=== PATIENT | female | born 1955 | race Caucasian/White ===

== ENCOUNTER 2018-06-06 16:17 | Emergency (ER) | payer OTHER ==
[~2018-06-06] VITALS: Ht 165.1 cm; Wt 68.0 kg
[2018-06-06] VITALS (7 sets, daily range): BP systolic 100–127; BP diastolic 59–77
--- NOTE | 2018-06-06 17:09 | Emergency Room Report ---
History of Present Illness General Chief Complaint: Lower Extremity Injury Source: EMS Present Illness HPI Patient is a 62-year-old female who presents for increased bilateral lower extremity pain. Patient was noted to have prior history of fall. The patient been found with increased temperature. Patient had prior history of hip surgery on her left hip. The patient reports having increased bilateral hip pain. She states she fall several days ago Allergies: Coded Allergies: No Known Allergies (Unverified , 06/06/18) Patient History Past Medical History: see triage record Last Menstrual Period: NA Reviewed Nursing Documentation: PMH: Agreed; PSxH: Agreed Nursing Documentation-PMH Past Medical History: No History, Except For History Of Psychiatric Problem: Yes Hx Neurological Problems: Yes - substance abuse Review of Systems All Other Systems: limited - poor historian Physical Exam Vital Signs Date Time Temp Pulse Resp B/P (MAP) Pulse Ox O2 Delivery O2 Flow Rate FiO2 06/06/18 16:11 101.5 105 18 127/77 97 Room Air 101.5 Sp02 EP Interpretation: reviewed, normal General Appearance: normal inspection, well appearing, no apparent distress, alert, GCS 15 Head: atraumatic ENT: normal ENT inspection, hearing grossly normal, normal voice Neck: normal inspection, full range of motion, supple, no bony tend Respiratory: normal inspection, lungs clear, normal breath sounds, no respiratory distress, no retraction, no wheezing Cardiovascular #1: regular rate, rhythm, no edema Gastrointestinal: normal inspection, normal bowel sounds, non tender, soft, no guarding, no hernia Genitourinary: no CVA tenderness Musculoskeletal: back normal, normal range of motion, decreased range of motion Neurologic: normal inspection, alert, oriented x3, responsive, brush or broom cutter III-XII nml as tested, speech normal Psychiatric: normal inspection, judgement/insight normal, mood/affect normal Skin: normal inspection, normal color, no rash Medical Decision Making Diagnostic Impression: Primary Impression: Febrile illness, acute Additional Impression: Heat exhaustion ER Course Patient presented for lower extremity pain and fever. The differential diagnosis included was not limited to osteomyelitis, urinary tract infection, the heat exhaustion among others.Because of complexity of patient's case laboratory testing and imaging studies were ordered. The patient was noted to have elevated temperature. Patient was given IV Fluids and IV antibiotics. The patient was noted to have improvement in her symptoms. She was given medications for pain.The patient was discussed with Dr. Corrales who agreed to accept the patient in transfer. Labs Test 06/06/18 16:55 White Blood Count 4.4 K/UL (4.8-10.8) Red Blood Count 3.42 M/UL (4.20-5.40) Hemoglobin 10.9 G/DL (12.0-16.0) Hematocrit 31.4 % (37.0-47.0) Mean Corpuscular Volume 92 FL (80-99) Mean Corpuscular Hemoglobin 32.0 PG (27.0-31.0) Mean Corpuscular Hemoglobin Concent 34.9 G/DL (32.0-36.0) Red Cell Distribution Width 12.3 % (11.6-14.8) Platelet Count 144 K/UL (150-450) Mean Platelet Volume 6.4 FL (6.5-10.1) Neutrophils (%) (Auto) 38.6 % (45.0-75.0) Lymphocytes (%) (Auto) 44.9 % (20.0-45.0) Monocytes (%) (Auto) 12.5 % (1.0-10.0) Eosinophils (%) (Auto) 2.4 % (0.0-3.0) Basophils (%) (Auto) 1.6 % (0.0-2.0) Sodium Level 140 MMOL/L (136-145) Potassium Level 3.7 MMOL/L (3.5-5.1) Chloride Level 102 MMOL/L (98-107) Carbon Dioxide Level 25 MMOL/L (21-32) Anion Gap 13 mmol/L (5-15) Blood Urea Nitrogen 12 mg/dL (7-18) Creatinine 0.9 MG/DL (0.55-1.30) Estimat Glomerular Filtration Rate > 60 mL/min (>60) Glucose Level 107 MG/DL (74-106) Lactic Acid Level 0.60 mmol/L (0.4-2.0) Calcium Level 9.7 MG/DL (8.5-10.1) Phosphorus Level 4.9 MG/DL (2.5-4.9) Magnesium Level 1.7 MG/DL (1.8-2.4) Total Bilirubin 0.5 MG/DL (0.2-1.0) Aspartate Amino Transf (AST/SGOT) 27 U/L (15-37) Alanine Aminotransferase (ALT/SGPT) 22 U/L (12-78) Alkaline Phosphatase 73 U/L (46-116) Total Creatine Kinase 96 U/L (26-308) Creatine Kinase MB 1.1 NG/ML (0.0-3.6) Creatine Kinase MB Relative Index 1.1 Troponin I 0.000 ng/mL (0.000-0.056) Total Protein 8.4 G/DL (6.4-8.2) Albumin 3.8 G/DL (3.4-5.0) Globulin 4.6 g/dL Albumin/Globulin Ratio 0.8 (1.0-2.7) EKG Diagnostic Results Rate: normal Rhythm: NSR - 94 ST Segments: no acute changes Last Vital Signs Date Time Temp Pulse Resp B/P (MAP) Pulse Ox O2 Delivery O2 Flow Rate FiO2 06/06/18 16:11 101.5 105 18 127/77 97 Room Air 101.5 Status: improved [facility] Condition: Improved Shivam Zavala MD Jun 06, 2018 17:09
--- NOTE | 2018-06-06 17:20 | Diagnostic Imaging Report ---
EXAM: XR Chest, 1 View CLINICAL HISTORY: SOB TECHNIQUE: Frontal view of the chest. COMPARISON: No relevant prior studies available. FINDINGS: Lungs: Mild pulmonary vascular congestion. No focal consolidation. Pleural space: Unremarkable. No pneumothorax. Heart: Cardiomegaly. Mediastinum: Unremarkable. Bones/joints: Unremarkable. IMPRESSION: Mild pulmonary vascular congestion. No focal consolidation.
[2018-06-06 17:27] LABS: BASOPHILS % (AUTO) 1.6 % (0.0-2.0); EOSINOPHILS % (AUTO) 2.4 % (0.0-3.0); HEMATOCRIT 31.4 % (37.0-47.0); HEMOGLOBIN 10.9 G/DL (12.0-16.0); LYMPHOCYTES % (AUTO) 44.9 % (20.0-45.0); MEAN CORPUSCULAR VOLUME 92 FL (80-99); MONOCYTES % (AUTO) 12.5 % (1.0-10.0); NEUTROPHILS % (AUTO) 38.6 % (45.0-75.0); PLATELET COUNT 144 K/UL (150-450); RED BLOOD COUNT 3.42 M/UL (4.20-5.40); RED CELL DISTRIBUTION WIDTH 12.3 % (11.6-14.8); WHITE BLOOD COUNT 4.4 K/UL (4.8-10.8)
[2018-06-06] MEDS ORDERED: Acetaminophen 500mg (ES) tab ORAL ONE (17:45)
[2018-06-06 17:52] LABS: ANION GAP 13 mmol/L (5-15); BLOOD UREA NITROGEN 12 mg/dL (7-18); CALCIUM 9.7 MG/DL (8.5-10.1); CARBON DIOXIDE 25 MMOL/L (21-32); CHLORIDE 102 MMOL/L (98-107); CREATININE 0.9 MG/DL (0.55-1.30); POTASSIUM 3.7 MMOL/L (3.5-5.1); SODIUM 140 MMOL/L (136-145)
[2018-06-06 18:04] LABS: ALANINE AMINOTRANSFERASE 22 U/L (12-78); ALBUMIN 3.8 G/DL (3.4-5.0); ALBUMIN/GLOBULIN RATIO 0.8 (1.0-2.7); ALKALINE PHOSPHATASE 73 U/L (46-116); ASPARTATE AMINO TRANSFERASE 27 U/L (15-37); BILIRUBIN,TOTAL 0.5 MG/DL (0.2-1.0); CKMB 1.1 NG/ML (0.0-3.6); CREATINE KINASE 96 U/L (26-308); PHOSPHORUS 4.9 MG/DL (2.5-4.9)
[2018-06-06 19:48] LABS: APPEARANCE,URINE SLIGHTLY CLOUDY; BILIRUBIN, URINE NEGATIVE (NEGATIVE); COLOR,URINE PALE YELLOW; GLUCOSE, URINE (UA) NEGATIVE (NEGATIVE); KETONES,URINE NEGATIVE (NEGATIVE); LEUKOCYTE ESTERASE ,URINE 1+ (NEGATIVE); NITRITE,URINE POSITIVE (NEGATIVE); PH,URINE 6 (4.5-8.0); PROTEIN,URINE NEGATIVE (NEGATIVE); UROBILINOGEN,URINE NORMAL MG/DL (0.0-1.0)
[2018-06-06] MEDS ORDERED: cefTRIAXone 1 GM in NS 55 ML IVPB ONE (20:15)
--- NOTE | 2018-06-06 20:49 | Diagnostic Imaging Report ---
EXAM: XR Pelvis, 1 or 2 Views CLINICAL HISTORY: PAIN TECHNIQUE: Frontal view of the pelvis. COMPARISON: No relevant prior studies available. FINDINGS: Bones/joints: Severe right and moderate left hip degenerative changes. 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 No acute displaced fracture or dislocation. Left proximal femoral surgical fixation. Soft tissues: Unremarkable. IMPRESSION: 1. Severe right and moderate left hip degenerative changes. 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 2. No acute displaced fracture or dislocation.
--- NOTE | 2018-06-07 18:35 | Cardiology Report ---
APPROVED REPORT EKG Measurement Heart [id number] Normal sinus rhythm Nonspecific ST abnormality Abnormal ECG
== END 2018-06-06 22:20 | disposition short-term general hospital (02) ==
LOC: EDBD 16:17 → EMR 17:00
DX: R50.9 Fever, unspecified (principal); T67.5XXA Heat exhaustion, unspecified, initial encounter; X58.XXXA Exposure to other specified factors, initial encounter; Y92.9 Unspecified place or not applicable; M25.552 Pain in left hip; M25.551 Pain in right hip; Z91.81 History of falling
CPT/HCPCS: 36415; 71045; 72170; 80053; 81003; 82550; 82553; 83605; 83735; 84100; 84484; 85025; 87040; 93005; 96361; 96365; 99284; J0696; 96360